=== PATIENT | female | born 1990 | race Caucasian/White ===

== ENCOUNTER → 2020-03-06 10:19 | Outpatient (BNVA) | payer BC, SELFPAY | PROVIDERS: PCP Internal Medicine; Referring Provider Internal Medicine; Visit Provider Internal Medicine Gastroenterology | DX: Z76.89 Persons encountering health services in other specified circumstances (principal) ==

== ENCOUNTER 2020-04-11 11:18 | Day surgery (SDC) | payer BC, SELFPAY ==
--- NOTE | 2020-04-10 09:05 | P.CONAN_ITS ---
Documented by User: Marium Ray 04/10/20 09:07 HPI - Anesthesia Eval Consult details Narrative: 29yo F for Colonoscopy h/o opioid/Suboxone - off suboxone for months PMFSH Past Medical History Medical History Anxiety and depression Back pain Chronic constipation GERD (gastroesophageal reflux disease) History of seizure Non-intractable vomiting with nausea Opioid use PTSD (post-traumatic stress disorder) Tobacco use Upper abdominal pain Family History Family History Father No problems noted. Mother Age: 51 Hx of congenital heart block Surgical History Surgical History (Updated 04/08/20 @ 10:01 by Rosaura Trinidad) History of eye surgery History of wisdom tooth extraction Hx of endoscopy Social History Social History Alcohol intake: never Smoking Status: Current every day smoker Tobacco Type: Cigarette Second Hand Smoke Exposure: No Use of substances other than those prescribed or required for medical reasons: Yes Substance Use Type: Marijuana Substance Use Frequency: Daily Advance Directives: No Advance Directives Information Provided: Yes Advance Directives on File: No Current occupational status: employed 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 [employer] Meds Allergies Allergy/AdvReac Type Severity Reaction Status Date / Time methadone [METHADONE] Allergy Unknown HIVES, Unverified 04/03/20 09:09 anaphylaxis Home Medications Medication Instructions Recorded Confirmed Type ondansetron HCl 4 mg tablet 4 mg PO BID PRN 03/05/20 04/11/20 History Exam Exam Date and Time: April 10, 2020904 Assessment and Plan Assessment Anesthesia Assessment: Chart Reviewed Documented by User: Jacinta Allen 04/11/20 12:13 PMFSH Past Medical History Medical History Anxiety and depression Back pain Chronic constipation GERD (gastroesophageal reflux disease) History of seizure Non-intractable vomiting with nausea Opioid use PTSD (post-traumatic stress disorder) Tobacco use Upper abdominal pain Family History Family History Father No problems noted. Mother Age: 51 Hx of congenital heart block Surgical History Surgical History (Updated 04/08/20 @ 10:01 by Rosaura Trinidad) History of eye surgery History of wisdom tooth extraction Hx of endoscopy Social History Social History Alcohol intake: never Smoking Status: Current every day smoker Tobacco Type: Cigarette Second Hand Smoke Exposure: No Use of substances other than those prescribed or required for medical reasons: Yes Substance Use Type: Marijuana Substance Use Frequency: Daily Advance Directives: No Advance Directives Information Provided: Yes Advance Directives on File: No Current occupational status: employed 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 Discussed and Chart Reviewed Final Anesthetic Review ASA Class: II Final Preanesthetic Review: No Changes in Pt Med Stat, Meds/Allgs Chart Reviewed, Consent Obtained/Reviewed and Anes Risks/Benef Reviewed Patient Risk: Low Procedure Risk: Low Anesthetic Plan Anesthetic Plan: MAC: Disposition: Standard PACU
[2020-04-10 12:43] VITALS: BMI 20.1
[2020-04-11 11:41] LABS: UPreg QC Valid YES; Urine Pregnancy NEGATIVE (NEGATIVE)
[2020-04-11 11:51] VITALS: BP 101/72; PULSE 59; RESP 18; TEMP 36.6; O2SAT 98
[2020-04-11] MEDS: Lactated Ringers 1,000 ML 100 ML IVCONT (12:03)
--- NOTE | 2020-04-11 12:17 | MHC.SHP ---
Pre-Procedural Eval Section A The patient is an INPATIENT: No The History & Physical has been completed within 30 days and I have reviewed it.: No Section B Chief Complaint: Constipation, Abdominal Pain Details of Present Illness: Complains of nausea without vomiting - taking Zofran prn. Weight fluctuates a lot - 103 lbs a few weeks ago. Relevant Social History: Tobacco Use (past smoker) Present Medications: see Short Stay Collaborative assessment Medical History: Significant History (Heartburn, Allergic rhinitis, unspecified seasonality, unspecified trigger, Moderate episode of recurrent major depressive disorder, anxiety, PTSD, Tobacco use, Opiod Adiction ) History of Previous Operations: Relevant previous surgery/procedure and date(s) (wisdom teeth) Allergies: Allergies Allergy/AdvReac Type Severity Reaction Status Date / Time methadone [METHADONE] Allergy Unknown HIVES, Unverified 04/03/20 09:09 anaphylaxis Review of Systems Sugical H&P ROS: Negative: Constitution, Cardiovascular and Respiratory and Yes, Specify: Gastrointestinal (abd pain, nausea) Exam Surgical H&P Exam: Normal: Heart, Normal: Lungs, Normal: Extremities and Normal: Abdomen Plan Diagnosis/Plan: Unchanged Patient has been examined and remains a candidate for the planned procedure
[2020-04-11 13:13] VITALS: BP 84/48; PULSE 68; RESP 16; TEMP 36.2; O2SAT 100
[2020-04-11 13:18] VITALS: BP 96/59; PULSE 62; RESP 18; O2SAT 100
[2020-04-11 13:28] VITALS: BP 98/65; PULSE 57; RESP 18; O2SAT 100
[2020-04-11 13:53] VITALS: PULSE 59; RESP 16; TEMP 36.2; O2SAT 100
--- NOTE | 2020-04-11 14:17 | HO.POSTANES ---
Post Anesthesia Evaluation Post Anesthesia Evaluation Vital Signs: Vital Signs Temp Pulse Resp BP Pulse Ox 04/11/20 13:53 97.2 F 59 16 100 04/11/20 13:28 57 18 98/65 100 04/11/20 13:18 62 18 96/59 L 100 04/11/20 13:13 97.2 F 68 16 84/48 L 100 04/11/20 11:51 98 F 59 18 101/72 98 Anesthesia: Monitored Mental Status: Awake Pain Control: Satisfactory Nausea/Vomiting: None Hydration: Adequate Anesthesia-Related Issues: No Anes. Related Issues (Reports some mild eye irritation. On exam, very little redness of conjunctiva under the lower lid. Advised comfort measures at home and follow up with PCP if worsens over the weekend. Pt reports that it has improved since recovery room.)
--- NOTE | 2020-04-11 18:05 | W.PM.OPN ---
Operative Note Operative Note Narrative: Date of procedure: 04/11/20 Pre-op diagnosis: Abdominal pain, chronic constipation Post-op diagnosis: other (Normal colonoscopy) Procedure: COLONOSCOPY TILL CECUM WITH BIOPSIES Consent: Indications for the procedure and potential complications of bleeding, perforation, reaction to medications and missed diagnosis were discussed with the patient and informed consent was obtained. Instrument: Olympus PCF H 190 L variable stiffness pediatric colonoscope Monitoring: Vital signs and clinical assessment, intermittent blood pressure monitoring, continuous EKG monitoring, Pulse oximetry and Carbon Dioxide monitoring were done throughout the procedure. Colon withdrawl time was 15 minutes. Procedure: The patient was placed in the left lateral decubitis position and pre-procedure medications were administered. After a digital rectal examination of the ano-rectum, the video colonoscope was inserted into the rectum and advanced through the colon to the cecum. The colonoscope was slowly withdrawn in a retrograde panoramic fashion and the colon mucosa was carefully examined including a retroflexed view of the rectum. Findings and interventions are described below. Procedure Difficulty: Colon was long and tortuous and there was some loop formation Findings: Terminal Ileum: Distal 10 cms was examined and a few 3-4 mm benign appearing nodules - biopsied. Cecum: Normal Ascending Colon: Normal Transverse Colon: Normal Descending Colon: Normal Sigmoid Colon: Normal Rectum: Normal Ano-rectum: Normal Colon preparation: Excellent Impression and Post Procedure Diagnosis: Colonoscopy Findings: Normal colonoscopy - no polyps were detected. Random biopsies were obtained from the TI and colon. Plan: Await pathology results Patient to schedule a FU appointment in the GI [facility] with Wily Lozada M.D.-. Repeat Colonoscopy at age 45 to 50 if biopsies are normal Above findings were reviewed with the patient. 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 TI, B. Random colon bx) Condition: stable Disposition: PACU
== END 2020-04-11 14:45 | disposition home or self-care (01) ==
PROVIDERS: Nurse Practitioner; PCP Internal Medicine; Visit Provider Internal Medicine Gastroenterology
PROC: 0DJD8ZZ Inspection of Lower Intestinal Tract, Via Natural or Artificial Opening Endoscopic (ICD-10-PCS; CPT 45378; principal; 2020-04-11 12:30)
DX: K59.09 Other constipation (principal); R10.84 Generalized abdominal pain; F32.9 Major depressive disorder, single episode, unspecified; F43.10 Post-traumatic stress disorder, unspecified; F11.90 Opioid use, unspecified, uncomplicated; F17.210 Nicotine dependence, cigarettes, uncomplicated; F12.90 Cannabis use, unspecified, uncomplicated; Z79.899 Other long term (current) drug therapy; Z88.8 Allergy status to other drugs, medicaments and biological substances
CPT/HCPCS: 45380; 81025; 88305

== ENCOUNTER → 2020-05-22 09:59 | Outpatient (BNVA) | payer BC, SELFPAY | PROVIDERS: Visit Provider Internal Medicine Gastroenterology | DX: Z76.89 Persons encountering health services in other specified circumstances (principal) ==

== ENCOUNTER 2021-06-08 11:52 | Outpatient (REF) | payer BC, SELFPAY ==
[2021-06-08 15:01] LABS: HCG Quantitative 33350 mIU/mL
== END 2021-06-08 11:53 | disposition home or self-care (01) ==
LOC: HO.HMGCLDS 11:52
PROVIDERS: PCP Internal Medicine; Visit Provider Internal Medicine
DX: Z32.01 Encounter for pregnancy test, result positive (principal)
CPT/HCPCS: 36415; 84702; 87086; 87088; 87186